=== PATIENT | female | born 1985 | race Caucasian/White ===

== ENCOUNTER 2017-03-26 15:53 | Emergency (ER) | payer OTHER, SELFPAY ==
[2017-03-26] MEDS ORDERED: Morphine 4 MG/ML VIAL ONE (16:42)
[2017-03-26] MEDS ORDERED: Ondansetron HCl/PF 4 MG/2 ML Vial ONE (16:42)
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
[2017-03-26] MEDS ORDERED: Lidocaine 1% (PF) 30 ML VIAL ONE (17:05)
[2017-03-26] MEDS ORDERED: Acetaminophen 500 MG TAB ONE (18:03)
== END 2017-03-26 18:05 | disposition home or self-care (01) ==
LOC: ERS 15:53
DX: S01.01XA Laceration without foreign body of scalp, initial encounter (principal); F41.9 Anxiety disorder, unspecified; F32.9 Major depressive disorder, single episode, unspecified; F17.210 Nicotine dependence, cigarettes, uncomplicated; V89.2XXA Person injured in unspecified motor-vehicle accident, traffic, initial encounter
CPT/HCPCS: 12011; 70450; 72125; 96374; 96375; J2001; J2270; J2405

== ENCOUNTER 2017-12-23 20:55 | Emergency (ER) | payer OTHER, SELFPAY ==
[2017-12-23] MEDS ORDERED: Famotidine/PF 20 mg/2ml Vial ONE (21:10)
[2017-12-23] MEDS ORDERED: Dicyclomine 20 MG TAB ONE (21:10)
[2017-12-23 21:35] LABS: Hemoglobin 13.8 g/dL (12.0-16.0); Mean Corpuscular HGB CONC 33.6 g/dL (32.0-36.0); Mean Corpuscular Hemoglobin 34.1 pg (27.0-31.0); Mean Platelet Volume 7.2 fL (7.4-10.4); Platelet Count 262 thou/uL (130-400); RBC Distribution Width 12.1 % (11.5-14.5); Red Blood Cell (RBC) Count 4.03 mill/uL (4.20-5.40)
[2017-12-23 21:46] LABS: BHCG - Serum Negative (NEGATIVE); Pregs Control Background? CLEAR/WHITE (CLR/WHITE); Pregs Control Bar Appear? YES (CONTROL BAR)
[2017-12-23 21:53] LABS: Lymphocytes 47 % (21-51); MDiff Complete? YES; Monocytes 4 % (0-10); Neutrophil 46 % (42-75); PLT Morphology Comment Appears Adequate; RBC Morphology Normal; Reactive Lymphocytes 3 % (0-10)
[2017-12-23 21:58] LABS: ALT (SGPT) 15 U/L (8-55); AST (SGOT) 18 U/L (5-34); Albumin 4.3 g/dL (3.5-5.0); Alcohol Less than 10 mg/dL (Less than 10); Alkaline Phosphatase 49 U/L (40-150); Anion Gap 12 mmol/L (10-20); BUN (Urea Nitrogen) 11 mg/dL (7.0-18.7); Bilirubin, Total 0.6 mg/dL (0.2-1.2); Calc. Creatinine Clearance 0 mL/min (70-130); Calcium 9.2 mg/dL (7.8-10.44); Carbon Dioxide 26 mmol/L (22-29); Chloride 106 mmol/L (98-107); Estimated GFR-MDRD 84; Globulin 3.1 g/dL (2.4-3.5); Glucose 82 mg/dL (70-105); Potassium 3.1 mmol/L (3.5-5.1); Protein, Total 7.4 g/dL (6.0-8.3); Salicylate Less than 8.0 mg/dL (15.0-30.0); Sodium 141 mmol/L (136-145)
[2017-12-23] MEDS ORDERED: Lorazepam 2 MG/ML VIAL ONE (22:15)
[2017-12-23] MEDS ORDERED: diphenhydrAMINE 50 MG/ML VIAL ONE (22:43)
[2017-12-23] MEDS ORDERED: Metoclopramide HCl 10 MG/2 ML VIAL ONE (22:43)
[2017-12-23 22:52] LABS: Amphetamine Detected (NotDetected); Cocaine Metabolite Screen Detected (NotDetected); Medtox Reader # READER 4; Methamphetamine Detected (NotDetected); Opiate Screen Detected (NotDetected); Phencyclidine (PCP) Not Detected (NotDetected); THC/Cannabinoid Screen Detected (NotDetected)
[2017-12-23 22:53] LABS: Barbiturates Screen Not Detected (NotDetected); Benzodiazepine Screen Not Detected (NotDetected); Medtox Control Line Valid? VALID (VALID); Methadone Not Detected (NotDetected); Oxycodone Screen Not Detected (NotDetected); Tricyclic Screen Not Detected (NotDetected)
[2017-12-24 00:17] LABS: Troponin I Less than 0.010 ng/mL (< 0.028)
--- NOTE | 2017-12-26 13:29 | EKG ---
Test Reason : Blood Pressure : / mmHG Vent. Rate : 051 BPM Atrial Rate : 051 BPM P-R Int : 152 ms QRS Dur : 094 ms QT Int : 470 ms P-R-T Axes : 068 059 073 degrees QTc Int : 433 ms Sinus bradycardia Confirmed by DIMA BELLE ([id number]), magazine editor DALY SCOTT ([id number]) on 12/26/2017 1:28:57 PM Referred By: Confirmed By:DIMA BELLE
== END 2017-12-24 00:34 | disposition home or self-care (01) ==
LOC: ERS 20:55
DX: T40.5X3A Poisoning by cocaine, assault, initial encounter (principal); T40.7X Poisoning by, adverse effect of and underdosing of cannabis (derivatives); F41.9 Anxiety disorder, unspecified; F31.9 Bipolar disorder, unspecified; F17.210 Nicotine dependence, cigarettes, uncomplicated; E05.90 Thyrotoxicosis, unspecified without thyrotoxic crisis or storm
CPT/HCPCS: 36415; 80053; 80306; 80307; 82553; 84484; 84703; 85025; 93005; 96365; 96366; 96367; 96375; J1200; J2060; J2765; S0028

== ENCOUNTER 2017-12-25 20:13 | Emergency (ER) | payer SELFPAY ==
[2017-12-25] MEDS ORDERED: hydrOXYzine 25 MG TAB PO SCH (21:00)
[2017-12-25] MEDS ORDERED: Ondansetron HCl/PF 4 MG/2 ML Vial ONE (21:07)
[2017-12-25] MEDS ORDERED: Acetaminophen 500 MG TAB ONE (22:00)
[2017-12-25] MEDS ORDERED: diphenhydrAMINE 25 MG CAP ONE (22:45)
--- NOTE | 2018-01-02 16:26 | EKG ---
Test Reason : DIZZINESS Blood Pressure : / mmHG Vent. Rate : 080 BPM Atrial Rate : 080 BPM P-R Int : 138 ms QRS Dur : 088 ms QT Int : 390 ms P-R-T Axes : 068 069 060 degrees QTc Int : 449 ms Sinus rhythm with marked sinus arrhythmia Otherwise normal ECG Confirmed by SHANA COSTELLO ([id number]), video effects editor ALFREDA JASMINE ([id number]) on 01/02/2018 4:26:14 PM Referred By: Confirmed By:SHANA COSTELLO
== END 2017-12-25 23:07 | disposition home or self-care (01) ==
LOC: ERS 20:13
DX: R42 Dizziness and giddiness (principal); F41.9 Anxiety disorder, unspecified; R51 Headache; E05.90 Thyrotoxicosis, unspecified without thyrotoxic crisis or storm; F31.9 Bipolar disorder, unspecified; F17.210 Nicotine dependence, cigarettes, uncomplicated
CPT/HCPCS: 93005; 96361; 96374; 96375; J2405

== ENCOUNTER 2018-01-18 09:40 | Emergency (ER) | payer SELFPAY ==
[2018-01-18 10:11] LABS: #Basophils 0.1 thou/uL (0.0-0.2); #Eosinphils 0.2 thou/uL (0.0-0.7); #Lymphocytes 3.1 thou/uL (1.20-3.40); #Monocytes 0.4 thou/uL (0.11-0.59); #Neutrophils 8.1 thou/uL (1.40-6.50); %Basophils 1.2 % (0.0-1.0); %Eosinophils 1.6 % (0.0-10.0); %Monocytes 3.5 % (0.0-10.0); %Neutrophils 67.8 % (42.0-75.0); Hemoglobin 15.6 g/dL (12.0-16.0); Mean Corpuscular HGB CONC 33.7 g/dL (32.0-36.0); Mean Corpuscular Hemoglobin 34.6 pg (27.0-31.0); Mean Platelet Volume 6.5 fL (7.4-10.4); Platelet Count 352 thou/uL (130-400); RBC Distribution Width 12.2 % (11.5-14.5); White Blood Cell (WBC) Count 11.9 thou/uL (4.8-10.8)
[2018-01-18 10:34] LABS: ALT (SGPT) 63 U/L (8-55); AST (SGOT) 34 U/L (5-34); Albumin 4.1 g/dL (3.5-5.0); Alkaline Phosphatase 57 U/L (40-150); Anion Gap 11 mmol/L (10-20); BUN (Urea Nitrogen) 10 mg/dL (7.0-18.7); Bilirubin, Total 0.3 mg/dL (0.2-1.2); CK (CPK) 55 U/L (29-168); Calc. Creatinine Clearance 0 mL/min (70-130); Calcium 9.6 mg/dL (7.8-10.44); Carbon Dioxide 29 mmol/L (22-29); Chloride 103 mmol/L (98-107); Estimated GFR-MDRD 90; Globulin 3.4 g/dL (2.4-3.5); Glucose 112 mg/dL (70-105); Potassium 3.7 mmol/L (3.5-5.1); Protein, Total 7.5 g/dL (6.0-8.3); Sodium 139 mmol/L (136-145)
== END 2018-01-18 11:50 | disposition home or self-care (01) ==
LOC: ERS 09:40
DX: R00.2 Palpitations (principal); F41.9 Anxiety disorder, unspecified; F31.9 Bipolar disorder, unspecified; F17.210 Nicotine dependence, cigarettes, uncomplicated
CPT/HCPCS: 36415; 80053; 82550; 85025; 93005

== ENCOUNTER 2019-03-16 09:32 | Emergency (ER) | payer SELFPAY ==
[2019-03-16 11:25] LABS: #Basophils 0.1 thou/uL (0.0-0.2); #Eosinphils 0.1 thou/uL (0.0-0.7); #Lymphocytes 3.1 thou/uL (1.20-3.40); #Monocytes 0.5 thou/uL (0.11-0.59); %Basophils 0.9 % (0.0-1.0); %Lymphocytes 35.5 % (21.0-51.0); %Monocytes 5.6 % (0.0-10.0); Hemoglobin 14.3 g/dL (12.0-16.0); Mean Corpuscular HGB CONC 33.2 g/dL (32.0-36.0); Mean Corpuscular Hemoglobin 32.9 pg (27.0-31.0); Mean Corpuscular Volume 99.3 fL (78.0-98.0); Mean Platelet Volume 7.2 fL (7.4-10.4); Platelet Count 296 thou/uL (130-400); RBC Distribution Width 11.9 % (11.5-14.5); Red Blood Cell (RBC) Count 4.35 mill/uL (4.20-5.40); White Blood Cell (WBC) Count 8.8 thou/uL (4.8-10.8)
[2019-03-16 11:42] LABS: ALT (SGPT) 22 U/L (8-55); AST (SGOT) 16 U/L (5-34); Albumin 4.1 g/dL (3.5-5.0); Alkaline Phosphatase 61 U/L (40-110); Anion Gap 12 mmol/L (10-20); BUN (Urea Nitrogen) 12 mg/dL (7.0-18.7); Bilirubin, Total 0.3 mg/dL (0.2-1.2); Calc. Creatinine Clearance 0 mL/min (70-130); Calcium 9.2 mg/dL (7.8-10.44); Carbon Dioxide 25 mmol/L (22-29); Chloride 106 mmol/L (98-107); Estimated GFR-MDRD 88; Globulin 3.5 g/dL (2.4-3.5); Glucose 75 mg/dL (70-105); Potassium 4.2 mmol/L (3.5-5.1); Protein, Total 7.6 g/dL (6.0-8.3); Sodium 139 mmol/L (136-145)
--- NOTE | 2019-03-16 12:15 | RAD ---
CHEST 1 VIEW: Date: 03/16/19 Time: 1207 hours HISTORY: Chest pain. FINDINGS: The heart size is normal. The lungs are well expanded without focal areas of consolidation, pneumotho races, or pleural effusions. IMPRESSION: No radiographic evidence of acute cardiopulmonary process. POS: TPC
[2019-03-16] MEDS ORDERED: Acetaminophen 500 MG TAB ONE (12:37)
[2019-03-16] MEDS ORDERED: Dexamethasone 10 MG/ML VIAL ONE (12:37)
[2019-03-16] MEDS ORDERED: Ketorolac Tromethamine 60 MG/2 ML VIAL ONE (12:37)
== END 2019-03-16 13:19 | disposition home or self-care (01) ==
LOC: ERS 09:32
DX: M94.0 Chondrocostal junction syndrome [Tietze] (principal); E05.90 Thyrotoxicosis, unspecified without thyrotoxic crisis or storm; F41.9 Anxiety disorder, unspecified; F31.9 Bipolar disorder, unspecified; F43.10 Post-traumatic stress disorder, unspecified; F17.210 Nicotine dependence, cigarettes, uncomplicated; Z79.891 Long term (current) use of opiate analgesic; Z79.899 Other long term (current) drug therapy
CPT/HCPCS: 36415; 71045; 80053; 84484; 85025; 93005; 96372; J1100; J1885

== ENCOUNTER 2019-08-13 07:26 | Inpatient (IN) | payer SELFPAY ==
[2019-08-13] MEDS ORDERED: Ondansetron PF 4 MG/2 ML Vial ONE ×2 (07:39→07:40)
[2019-08-13] MEDS ORDERED: Morphine 4 MG/ML VIAL ONE (07:39)
[2019-08-13] MEDS ORDERED: cefTRIAXone\\ROCEPHIN 2 GM VIAL ONE (07:39)
--- NOTE | 2019-08-13 07:49 | RAD ---
Exam: Chest one view HISTORY:Sepsis. Comparison: 03/16/2019 FINDINGS: Cardiac silhouette: Normal Aorta: Unremarkable Pulmonary vessels: Normal Costophrenic angles: Clear LUNGS: No masses or consolidation. Pneumothorax: None Osseous abnormalities: None IMPRESSION: No acute cardiopulmonary process.
[2019-08-13 08:23] LABS: #Basophils 0.1 thou/uL (0.0-0.2); #Lymphocytes 2.3 thou/uL (1.20-3.40); #Monocytes 1.5 thou/uL (0.11-0.59); #Neutrophils 14.6 thou/uL (1.40-6.50); %Basophils 0.8 % (0.0-1.0); %Eosinophils 0.2 % (0.0-10.0); %Lymphocytes 12.6 % (21.0-51.0); %Monocytes 7.9 % (0.0-10.0); %Neutrophils 78.6 % (42.0-75.0); Mean Corpuscular HGB CONC 32.3 g/dL (32.0-36.0); Mean Corpuscular Hemoglobin 31.3 pg (27.0-31.0); Mean Platelet Volume 6.6 fL (7.4-10.4); Platelet Count 325 thou/uL (130-400); RBC Distribution Width 12.6 % (11.5-14.5); Red Blood Cell (RBC) Count 4.47 mill/uL (4.20-5.40); White Blood Cell (WBC) Count 18.5 thou/uL (4.8-10.8)
[2019-08-13 08:41] LABS: ALT (SGPT) 29 U/L (8-55); AST (SGOT) 20 U/L (5-34); Albumin 3.5 g/dL (3.5-5.0); Alkaline Phosphatase 129 U/L (40-110); Anion Gap 16 mmol/L (10-20); BUN (Urea Nitrogen) 7 mg/dL (7.0-18.7); Bilirubin, Total 0.5 mg/dL (0.2-1.2); Calc. Creatinine Clearance 0 mL/min (70-130); Calcium 8.8 mg/dL (7.8-10.44); Carbon Dioxide 23 mmol/L (22-29); Chloride 95 mmol/L (98-107); Estimated GFR-MDRD 83; Globulin 3.8 g/dL (2.4-3.5); Glucose 104 mg/dL (70-105); Potassium 3.5 mmol/L (3.5-5.1); Protein, Total 7.3 g/dL (6.0-8.3); Sodium 130 mmol/L (136-145)
[2019-08-13 08:47] LABS: Bilirubin Negative (Negative); Blood, Urine 2+ (Negative); Clarity Turbid (Clear); Glucose, Urine (Dipstick) Normal (Negative); Leukocyte 500 Leu/uL (Negative); Nitrite 2+ (Negative); Protein, Urine (Dipstick) 50 mg/dL (Neg-Trace); Squamous Epithelial 0-3 HPF (0-3); Urobilinogen Normal mg/dL (Less than 2); WBC/HPF Greater than 50 HPF (0-3)
[2019-08-13 08:48] LABS: Bacteria/HPF 1+ HPF (None Seen)
[2019-08-13] MEDS ORDERED: Metoclopramide HCl 10 MG/2 ML VIAL ONE (09:56)
[2019-08-13] MEDS ORDERED: Senokot S 8.6-50 MG TAB PO PRN (11:23)
[2019-08-13] MEDS: Sodium Chloride 0.9% 1,000 ML IV SCH ×2 (12:12→22:57)
[2019-08-13 12:25] VITALS: BMI 20.2
[2019-08-13] MEDS ORDERED: Ondansetron PF 4 MG/2 ML Vial IVP PRN (13:05)
[2019-08-13] MEDS ORDERED: cefTRIAXone\\ROCEPHIN 1 GM in Sodium Chloride 0.9% 100 ML IVPB SCH (15:00)
--- NOTE | 2019-08-13 17:54 | PDOC.HHP ---
Hospitalist HPI - History of Present Illness right flank pain History of Present Illness: 34yo F w/ MHx of hyperthyroidism, polysubstance abuse, depression, and bipolar disorder presents with right flank pain. has had it for the past week, preferred to stay home due to COVID, but pain worsened and over the past few days felt febrile so came to the ED on encounter, laying comfortably in bed and complains of improving right flank pain. Endorses recent marijuana abuse. Denies n/v, reduced PO intake, dysuria, hematuria, urinary frequency, chills, night sweats, chest pain, palptations, dyspnea, constipation, diarrhea, recent substance abuse other than noted ED Course: In the ED, was found to be febrile and UA consistent with UTI, so was admitted for further management Hospitalist ROS - Review of Systems All other systems reviewed; all pertinent +/- noted in HPI/Subj - Medication Medications: Active Medications Generic Name Dose Route Start Last Admin Trade Name Freq PRN Reason Stop Dose Admin Sodium Chloride 1,000 mls @ 100 mls/hr 08/13/19 11:23 08/13/19 12:12 Normal Saline 0.9% IV 1,000 mls .Q10H SAMY Administration Hospitalist History - Past Medical History Source: patient Cardiac: denies: AFIB, CAD, HTN Pulmonary: reports: no pertinent history 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 Gastrointestinal: denies: no pertinent history Psych: reports: Anxiety, Bipolar, Depression, Other (PTSD, suicidal attempts) Musculoskeletal: reports: no pertinent history Rheumatologic: reports: no pertinent history Infectious Disease: reports: no pertinent history ENT: reports: no pertinent history Renal/: reports: no pertinent history Endocrine: reports: Hyperthyroidism (unknown etiology or if was treated) - Past Surgical History Past Surgical History: reports: Hysterectomy, Tonsillectomy - Social History Smoking Status: Former smoker (3 cigarettes daily) Alcohol: reports: Occassional Drugs: reports: marijuana, methamphetamine (quit 3 months ago) - Exam General Appearance: NAD, awake alert Eye: PERRL, anicteric sclera Neck: no JVD Heart: no murmur, no gallops, no rubs Heart - other findings: regular rhythm, mildly tachycardic Respiratory: CTAB, no wheezes, no rales, no ronchi Gastrointestinal: soft, non-distended, normal bowel sounds Gastrointestinal - other findings: mild RUQ tenderness; severe right CV angle tenderness Extremities: no edema Psychiatric: normal affect, normal behavior, A&O x 3 Hospitalist Results - Labs Result Diagrams: 08/13/19 08:07 08/13/19 08:07 Lab results: WBC 18.5 thou/uL (4.8-10.8) H 08/13/19 08:07 Hgb 14.0 g/dL (12.0-16.0) 08/13/19 08:07 Hct 43.4 % (36.0-47.0) 08/13/19 08:07 MCV 97.0 fL (78.0-98.0) 08/13/19 08:07 Plt Count 325 thou/uL (130-400) 08/13/19 08:07 Neutrophils % 78.6 % (42.0-75.0) H 08/13/19 08:07 Sodium 130 mmol/L (136-145) L 08/13/19 08:07 Potassium 3.5 mmol/L (3.5-5.1) 08/13/19 08:07 Chloride 95 mmol/L (98-107) L 08/13/19 08:07 Carbon Dioxide 23 mmol/L (22-29) 08/13/19 08:07 BUN 7 mg/dL (7.0-18.7) 08/13/19 08:07 Creatinine 0.79 mg/dL (0.6-1.1) 08/13/19 08:07 Glucose 104 mg/dL (70-105) 08/13/19 08:07 Lactic Acid 2.3 mmol/L (0.5-2.2) H 08/13/19 08:07 Calcium 8.8 mg/dL (7.8-10.44) 08/13/19 08:07 Total Bilirubin 0.5 mg/dL (0.2-1.2) 08/13/19 08:07 AST 20 U/L (5-34) 08/13/19 08:07 ALT 29 U/L (8-55) 08/13/19 08:07 Alkaline Phosphatase 129 U/L (40-110) H 08/13/19 08:07 Serum Total Protein 7.3 g/dL (6.0-8.3) 08/13/19 08:07 Albumin 3.5 g/dL (3.5-5.0) 08/13/19 08:07 Urine Ketones 10 mg/dL (Negative) A 08/13/19 08: Urine Blood 2+ (Negative) A 08/13/19 08:27 Urine Nitrite 2+ (Negative) A 08/13/19 08:27 Ur Leukocyte Esterase 500 Maira/uL (Negative) A 08/13/19 08: Urine RBC 11-20 HPF (0-3) A 08/13/19 08: Urine WBC Greater than 50 HPF (0-3) A 08/13/19 08:27 Ur Squamous Epith Cells 0-3 HPF (0-3) 08/13/19 08: Urine Bacteria 1+ HPF (None Seen) A 08/13/19 08: - Radiology Interpretation Chest x-ray Status: report reviewed by me Hospitalist H&P A/P - Problem (1) Complicated UTI (urinary tract infection) Code(s): N39.0 - URINARY TRACT INFECTION, SITE NOT SPECIFIED Status: Acute (2) Pyelonephritis Code(s): N12 - TUBULO-INTERSTITIAL NEPHRITIS, NOT SPCF ACUTE OR CHRONIC Status: Acute (3) Chronic hyponatremia Code(s): E87.1 - HYPO-OSMOLALITY AND HYPONATREMIA Status: Acute - Plan Plan: #Pyelonephritis -febrile, UA bacteria pyuria nitrite +ve, right CV angle tenderness -pending UCx -IVF -ceftriaxone 1 g IVP daily -zofran PRN n/v -tylenol PRN pain #polysubstance abuse -Meth in the past, currently marijuana -will provide resources for help on discharge #hyperthyroidism -etiology or treatment unknown -TSH Disposition/PPx: full code DVT PPx: enoxeparin GI PPx: no indication
[2019-08-13] MEDS: Morphine 2 MG/ML SYRINGE SLOW IVP PRN ×2 (19:29→23:33)
[2019-08-13] MEDS: Acetaminophen 325 MG TAB PO PRN (20:21)
--- NOTE | 2019-08-13 20:43 | HP ---
Please refer to other H&P documentation MTDD
[2019-08-14] MEDS: Acetaminophen 325 MG TAB PO PRN ×2 (02:06→07:44)
[2019-08-14] MEDS: Morphine 2 MG/ML SYRINGE SLOW IVP PRN ×4 (03:35→21:45)
[2019-08-14 06:16] LABS: Anion Gap 11 mmol/L (10-20); BUN (Urea Nitrogen) 5 mg/dL (7.0-18.7); Calc. Creatinine Clearance 129 mL/min (70-130); Calcium 7.8 mg/dL (7.8-10.44); Carbon Dioxide 25 mmol/L (22-29); Chloride 104 mmol/L (98-107); Estimated GFR-MDRD Greater than 90; Glucose 118 mg/dL (70-105); Potassium 3.2 mmol/L (3.5-5.1); Sodium 137 mmol/L (136-145)
[2019-08-14] MEDS: cefTRIAXone\\ROCEPHIN 1 GM in Sodium Chloride 0.9% 100 ML IVPB SCH (07:44)
[2019-08-14] MEDS: Enoxaparin Sodium 30 MG/0.3 ML SYRINGE SC SCH (08:03)
[2019-08-14 08:08] LABS: #Eosinphils 0.1 thou/uL (0.0-0.7); #Lymphocytes 1.6 thou/uL (1.20-3.40); #Monocytes 0.6 thou/uL (0.11-0.59); #Neutrophils 5.8 thou/uL (1.40-6.50); %Basophils 0.6 % (0.0-1.0); %Eosinophils 1.1 % (0.0-10.0); %Lymphocytes 19.9 % (21.0-51.0); %Monocytes 7.4 % (0.0-10.0); Hemoglobin 12.7 g/dL (12.0-16.0); Mean Corpuscular HGB CONC 33.1 g/dL (32.0-36.0); Mean Corpuscular Hemoglobin 32.4 pg (27.0-31.0); Mean Platelet Volume 7.1 fL (7.4-10.4); Platelet Count 257 thou/uL (130-400); RBC Distribution Width 12.5 % (11.5-14.5); Red Blood Cell (RBC) Count 3.93 mill/uL (4.20-5.40); White Blood Cell (WBC) Count 8.2 thou/uL (4.8-10.8)
[2019-08-14] MEDS: Potassium Chloride 20 MEQ TAB PO SCH ×2 (13:36→16:54)
[2019-08-14] MEDS: Sodium Chloride 0.9% 1,000 ML IV SCH ×2 (13:41→17:33)
[2019-08-14] MEDS: Lorazepam 2 MG/ML VIAL SLOW IVP PRN (16:54)
[2019-08-14 17:12] LABS: Medtox Reader # READER 4
[2019-08-14 17:13] LABS: Amphetamine Not Detected (NotDetected); Barbiturates Screen Not Detected (NotDetected); Benzodiazepine Screen Not Detected (NotDetected); Cocaine Metabolite Screen Not Detected (NotDetected); Medtox Control Line Valid? VALID (VALID); Methadone Not Detected (NotDetected); Methamphetamine Not Detected (NotDetected); Opiate Screen Detected (NotDetected); Oxycodone Screen Not Detected (NotDetected); Phencyclidine (PCP) Not Detected (NotDetected); THC/Cannabinoid Screen Detected (NotDetected); Tricyclic Screen Not Detected (NotDetected)
--- NOTE | 2019-08-14 22:44 | PDOC.HOSPP ---
- Subjective Encounter Date: 08/14/19 Encounter Time: 09:00 Subjective: overnight, left hospital in PM to smoke. This morning, complains of improving flank pain. no other complaints. considering history of substance abuse and labile mood, requested to prevent patient from leaving the hospital again. - Objective Vital Signs & Weight: Vital Signs (12 hours) Temp Pulse Resp BP Pulse Ox 08/14/19 19:41 98.0 F 100 16 111/62 100 Weight Weight 141 lb 1.6 oz I&O: 08/13/19 08/14/19 08/15/19 06:59 06:59 06:59 Intake Total 1999 840 Output Total 200 Balance 1999 640 Result Diagrams: 08/14/19 05:57 08/14/19 05:57 Hospitalist ROS - Review of Systems Constitutional: denies: fever, chills, sweats, weakness, malaise, other Respiratory: denies: cough, dry, shortness of breath, hemoptysis, SOB with excertion, pleuritic pain, sputum, wheezing, other Cardiovascular: denies: chest pain, palpitations, orthopnea, paroxysmal noc. dyspnea, edema, light headedness, other Gastrointestinal: denies: nausea, vomiting, abdominal pain, diarrhea, constipation, melena, hematochezia, other - Medication Medications: Active Medications Generic Name Dose Route Start Last Admin Trade Name Freq PRN Reason Stop Dose Admin Acetaminophen 650 mg 08/13/19 11:23 08/14/19 07:44 Tylenol PO 650 mg Q4H PRN Administration Headache/Fever/Mild Pain (1-3) Enoxaparin Sodium 30 mg 08/14/19 09:00 08/14/19 08:03 Lovenox SC 30 mg 0900 SAMY Administration Sodium Chloride 1,000 mls @ 100 mls/hr 08/13/19 11:23 08/14/19 17:33 Normal Saline 0.9% IV 1,000 mls .Q10H SAMY Administration Ceftriaxone Sodium 1 gm/ 100 mls @ 200 mls/hr 08/14/19 08:00 08/14/19 07:44 Sodium Chloride IVPB 100 mls 0800 SAMY Administration Lorazepam 2 mg 08/14/19 16:27 08/14/19 16:54 Ativan SLOW IVP 2 mg Q4H PRN Administration Anxiety/Agitation Morphine Sulfate 2 mg 08/13/19 19:25 08/14/19 21:45 Morphine SLOW IVP 2 mg Q4H PRN Administration Pain>3 Senna/Docusate Sodium 2 tab 08/13/19 11:23 08/14/19 08:03 Senokot S PO 2 tab BIDPRN PRN Administration Constipation - Exam General Appearance: awake alert General - other findings: mildly anxious Neck: no JVD Heart: no murmur, no gallops, no rubs, normal peripheral pulses Heart - other findings: tachycardic, normal rhythm Respiratory: CTAB, no wheezes, no rales, no ronchi, normal chest expansion, no tachypnea, normal percussion Gastrointestinal: soft, non-tender, non-distended, normal bowel sounds, no palpable masses, no hepatomegaly, no splenomegaly, no bruit Extremities: no edema Psychiatric: A&O x 3 Psychiatric - other findings: labile mood, anxious Hosp A/P (1) Complicated UTI (urinary tract infection) Code(s): N39.0 - URINARY TRACT INFECTION, SITE NOT SPECIFIED Status: Acute (2) Pyelonephritis Code(s): N12 - TUBULO-INTERSTITIAL NEPHRITIS, NOT SPCF ACUTE OR CHRONIC Status: Acute (3) Chronic hyponatremia Code(s): E87.1 - HYPO-OSMOLALITY AND HYPONATREMIA Status: Acute - Plan #pyelonephritis -clinically improving -continue ceftriaxone pending susceptibilities -if chooses to leave AMA, prescribe levoflox 750mg PO daily to complete 7 days #hyponatremia -resolved #bipolar disorder #depression with suicidal attempts -patient endorses being off [employer] insurance ran out a year ago -consult CM ELOS: 1-2 midnights
--- NOTE | 2019-08-14 22:54 | PDOC.EVN ---
Event Note - Event Note Event Note: Paged by nurse in PM stating that patient has vivid hallucinations family stating that the patient is . Patient very anxious. Came to see patient promptly, patient claims she had a vivid nightmare, very anxious, tachycardic, tachypnic. Calmed patient down. Will obtain UDS and compare to urine sample on presentation considering patient left hospital in between. Ativan PRN agitation. Nurse requested to obtain records of psychiatric medications. MHMR consulted. -unlikely cephalosporin induced delirium which is more common in elderly and critically ill -if exhibits suicidal ideation with plan, start sitter.
[2019-08-15 05:04] LABS: Potassium 4.2 mmol/L (3.5-5.1)
[2019-08-15] MEDS: Sodium Chloride 0.9% 1,000 ML IV SCH ×2 (07:40→14:09)
[2019-08-15] MEDS: Enoxaparin Sodium 30 MG/0.3 ML SYRINGE SC SCH (08:15)
[2019-08-15] MEDS: cefTRIAXone\\ROCEPHIN 1 GM in Sodium Chloride 0.9% 100 ML IVPB SCH (08:15)
[2019-08-15] MEDS ORDERED: Nicotine 21 MG PATCH TD SCH (09:00)
[2019-08-15] MEDS: Morphine 2 MG/ML SYRINGE SLOW IVP PRN (09:12)
[2019-08-15 09:13] VITALS: BP 113/57; TEMP 98.4
[2019-08-15] MEDS: Lorazepam 2 MG/ML VIAL SLOW IVP PRN (09:19)
--- NOTE | 2019-08-16 07:36 | PQF ---
Emily nKox, BOB [id number] CLINICAL DOCUMENTATION CLARIFICATION FORM: POST DISCHARGE Addendum to original discharge summary date: ____ Late entry note date: __ DATE:08/16/2019 ATTN: Bob Sy Please exercise your independent, professional judgment in responding to the clarification form. Clinical indicators are provided on the bottom of this form for your review Please check appropriate box(s) to clarify if the following diagnosis has been ruled in or ruled out: Sepsis [ ] Ruled in diagnosis [ ] Continue to treat [ ] Resolved [ x ] Ruled out diagnosis [ ] Cannot rule out diagnosis [ ] Other diagnosis [ ] Unable to determine For continuity of documentation, please document condition throughout progress notes and discharge summary. Thank You. CLINICAL INDICATORS - SIGNS / SYMPTOMS / LABS Laboratory 08/12 WBC 18.5, Plt count 325, Neutrophils 78.6, Lymphocytes 12.6, Lactic acid 2.3 Blood culture 08/12 No growth at 48 hrs Vital signs 08/12 BP 110/61, Pulse 125, Resp 24, Temp 100.8 ED notes p2 08/12 SIRS scoring: Pt did meet criteria ED notes p9 08/12 Pt has been thoroughly evaluated and appears to have sepsis. H&P p1 08/12 Dr Bailey In the ED, was found to be fibrile and UA consistent with UTI H&P p4 08/12 Dr Bailey Complicated UTI: Pyelonephritis RISK FACTORS H&P p2 08/12 Former Smoker H&P p4 08/12 Complicated UTI H&P p4 08/12 Pyelonephritis TREATMENTS MAR 08/12 IV Ceftriaxone 2gm JUN 08 IV Morphine 4mg JUN 08 IVF NS 1L Blood culture 08/12 (This form is maintained as a part of the permanent medical record) 2014 [employer]. All Rights Reserved [email or web address]
--- NOTE | 2019-08-16 07:36 | PQF ---
Lisette Emilyshadi CLEMENT, BOB [id number] CLINICAL DOCUMENTATION CLARIFICATION FORM: POST DISCHARGE Addendum to original discharge summary date: ____ Late entry note date: __ DATE:08/16/2019 ATTN: Bob Sy Please exercise your independent, professional judgment in responding to the clarification form. Clinical indicators are provided on the bottom of this form for your review Please check appropriate box(s): Encephalopathy: Etiology: [ ] Metabolic [ ] Toxic [ ] Septic [ ] Unspecified [ ] Other (please specify) [ ] Transient Alteration of Awareness [ x ] Other diagnosis _a nightmare [ ] Unable to determine In addition, please specify: Present on Admission (POA): [ ] Yes [ x ] No [ ] Unable to determine For continuity of documentation, please document condition throughout progress notes and discharge summary. Thank You. CLINICAL INDICATORS - SIGNS / SYMPTOMS / LABS Laboratory 08/12 WBC 18.5, Plt count 325, Neutrophils 78.6, Lymphocytes 12.6, Lactic acid 2.3 Vital signs 08/12 BP 110/61, Pulse 125, Resp 24, Temp 100.8 ED notes p9 08/12 Pt has been thoroughly evaluated and appears to have sepsis. H&P p1 08/12 Dr Clement In the ED, was found to be fibrile and UA consistent with UTI H&P p4 08/12 Dr Clement Complicated UTI: Pyelonephritis Event note p1 08/13 Dr Clement nursse stating that pt has vivid hallucinations family stating that the pt is Event note p1 08/13 Dr Clement sha had vivid nightmare, very anxious, tachycardic, tachypneic RISK FACTORS ED notes p9 - Sepsis H&P p2 08/12 Former Smoker H&P p2 08/12 Anxiety H&P p2 08/12 Bipolar disorder H&P p2 08/12 PTSD H&P p4 08/12 Complicated UTI H&P p4 08/12 Marijuan abuse H&P p4 08/12 Pyelonephritis H&P p4 08/12 Chronic Hyponatremia TREATMENTS: TREATMENTS JUN 08 IV Ceftriaxone 2gm JUN 08 IV Morphine 4mg JUN 08 IVF NS 1L JUN 08 IV Ativan 2mg (This form is maintained as a part of the permanent medical record) 2014 [employer]. All Rights Reserved [email or web address]
--- NOTE | 2019-08-16 11:32 | DIS ---
DATE OF ADMISSION: 08/13/2019 DATE OF DISCHARGE: 08/15/2019 HOSPITAL COURSE: Ms. Knox is a 34-year-old female with a medical history of polysubstance abuse including meth and active marijuana, major depressive disorder including suicidal attempts and bipolar disease who presented with right flank pain. She was diagnosed with pyelonephritis. The patient was treated with antibiotic and responded well clinically. However, throughout her admission, she exhibited erratic behavior and left the hospital multiple times. Urine drug screen showed marijuana. The day prior to discharge, the patient was extremely agitated and was reportedly very anxious and had vivid dreams of homicidal nature. [facility] was consulted and during conversation, the patient exhibited homicidal ideation. She was based on [facility] recommendations transferred to inpatient psychiatry. At the time of discharge, she was medically cleared and was prescribed a 4-day regimen of levofloxacin to complete treatment of her pyelonephritis. PHYSICAL EXAMINATION: VITAL SIGNS: 113/57, 88, 18, 100% on room air, 98.4 Fahrenheit. GENERAL: Appears anxious, fidgety. NECK: No JVD. HEART: No murmurs, gallops, or rubs. Normal peripheral pulses. Tachycardic. RESPIRATORY: Clear to auscultation bilaterally. No wheezes, rales, or rhonchi. Normal chest expansion. No tachypnea. GI: Soft, nontender, nondistended. Normal bowel sounds. EXTREMITIES: No edema. PSYCHIATRIC: Alert and oriented x3. Appears anxious and agitated. MEDICATIONS: New medications: 1. Levofloxacin 750 mg p.o. daily for 4 more days. 2. Acetaminophen. Continued medications: Of note, the patient endorsed that she used to be on multiple psychiatric medications up to a year ago, but self discontinued them after her insurance was not renewed. [facility] is aware as she is known to the [facility] from last June. Job ID: [id number]
== END 2019-08-15 18:06 | DRG 690 ==
LOC: ERS 07:26 → ONC 09:47
PROVIDERS: ADMIT Internal Medicine; ATTEND Internal Medicine
DX: N12 Tubulo-interstitial nephritis, not specified as acute or chronic (principal); E87.1 Hypo-osmolality and hyponatremia; F41.9 Anxiety disorder, unspecified; F31.9 Bipolar disorder, unspecified; F43.10 Post-traumatic stress disorder, unspecified; E05.90 Thyrotoxicosis, unspecified without thyrotoxic crisis or storm; F12.10 Cannabis abuse, uncomplicated; Z91.5 Personal history of self-harm; Z87.891 Personal history of nicotine dependence; Z90.710 Acquired absence of both cervix and uterus; Z98.51 Tubal ligation status; Z88.6 Allergy status to analgesic agent; Z88.8 Allergy status to other drugs, medicaments and biological substances; F51.5 Nightmare disorder; G47.9 Sleep disorder, unspecified
CPT/HCPCS: 36415; 36416; 71045; 80048; 80053; 80306; 81003; 81015; 83605; 83930; 83935; 84132; 84300; 85025; 87040; 87086; J0696; J1650; J2060; J2270; J2405; J2765; J3490